=== PATIENT | male | born 1990 | race African-American/Black ===

== ENCOUNTER 2022-05-22 18:11 | Inpatient (IN) | payer OTHER ==
[2022-05-22 20:18] VITALS: BMI 33.5
[2022-05-23] MEDS ORDERED: IBUPROFEN 600 MG TABLET (FP) PO PRN (10:48)
[2022-05-23] MEDS ORDERED: NALOXONE HCL (KLOXXADO) 8 MG SPRAY NS PRN (10:48)
[2022-05-23] MEDS ORDERED: chlordiazePOXIDE HCL 25 MG CAPSULE PO PRN (10:48)
[2022-05-23] MEDS ORDERED: IBUPROFEN 400 MG TABLET (FP) PO PRN (10:48)
[2022-05-23] MEDS ORDERED: BENZOCAINE/MENTHOL (CHLORASEPTIC ) LOZENGE MM PRN (10:48)
[2022-05-23] MEDS ORDERED: NICOTINE POLACRILEX 2 MG GUM BUC PRN (10:48)
[2022-05-23] MEDS ORDERED: POLYETHYLENE GLYCOL (HEALTHYLAX) 3350 17 GM PACKET PO PRN (10:48)
[2022-05-23] MEDS ORDERED: LOPERAMIDE HCL 2 MG CAPSULE PO PRN (10:48)
[2022-05-23] MEDS ORDERED: DICYCLOMINE HCL 10 MG CAPSULE PO PRN (10:48)
[2022-05-23] MEDS ORDERED: ACETAMINOPHEN 325 MG TABLET (FP) PO PRN ×2 (10:48)
[2022-05-23] MEDS ORDERED: MAG HYDROX/AL HYDROX/SIMETH 30 ML UNIT-DOSE CUP PO PRN (10:48)
[2022-05-23] MEDS ORDERED: BISMUTH SUBSALICYLATE 524 MG/30 ML PO PRN (10:48)
[2022-05-23] MEDS ORDERED: MAGNESIUM HYDROX 2400MG/30ML ORAL SUSPENSION 30 ML CUP PO PRN (10:48)
[2022-05-23] MEDS ORDERED: chlordiazePOXIDE HCL 25 MG CAPSULE ONE (11:53)
[2022-05-23] MEDS: chlordiazePOXIDE HCL 25 MG CAPSULE PO SCH ×3 (11:56→22:07)
[2022-05-23] MEDS ORDERED: LOSARTAN 50MG/HCTZ 12.5MG 1 TAB PO SCH (13:00)
[2022-05-23] MEDS: ONDANSETRON *ODT* 4 MG TABLET SL PRN (13:23)
[2022-05-23] MEDS: hydrOXYzine PAMOATE 25 MG CAPSULE (FP) PO PRN (13:23)
[2022-05-23] MEDS: METHOCARBAMOL 500 MG TABLET PO PRN (13:23)
[2022-05-23] MEDS: ALBUTEROL SO4 HFA INHALER IH PRN ×2 (13:23→22:06)
[2022-05-23] MEDS: NICOTINE 10 MG CARTRIDGE (INHALER) IH PRN (13:29)
[2022-05-23] MEDS: LOSARTAN POTASSIUM 50 MG TABLET PO SCH (14:13)
[2022-05-23] MEDS: HYDROCHLOROTHIAZIDE 12.5 MG CAPSULE (FP) PO SCH (14:13)
[2022-05-23] MEDS: MELATONIN 5 MG TABLETS PO SCH (22:05)
[2022-05-23] MEDS: THIAMINE HCL 100 MG TABLET (FP) PO SCH (22:06)
[2022-05-23] MEDS: APIXABAN 5 MG TABLET PO SCH (22:06)
[2022-05-23] MEDS: BUDESONIDE/FORMETEROL FUMARATE 80/4.5 mcg INHALER IH SCH (22:07)
[2022-05-24] MEDS: chlordiazePOXIDE HCL 25 MG CAPSULE PO SCH ×4 (06:07→22:45)
[2022-05-24] MEDS: PRENATAL VITAMINS W/ FOLIC ACID TABLET (FP) PO SCH (10:22)
[2022-05-24] MEDS: HYDROCHLOROTHIAZIDE 12.5 MG CAPSULE (FP) PO SCH (10:22)
[2022-05-24] MEDS: LOSARTAN POTASSIUM 50 MG TABLET PO SCH (10:22)
[2022-05-24] MEDS: APIXABAN 5 MG TABLET PO SCH ×2 (10:22→22:44)
[2022-05-24] MEDS: BUDESONIDE/FORMETEROL FUMARATE 80/4.5 mcg INHALER IH SCH ×2 (10:23→22:43)
[2022-05-24 11:20] LABS: HEMATOCRIT 43.1 % (35.4-49); HEMOGLOBIN 14.3 GM/dL (11.7-16.9); MCH 28.9 pg (25.7-33.7); MCHC 33.3 g/dl (32.0-35.9); MEAN CELL VOLUME 86.9 fl (80-96); MEAN PLT VOLUME 9.2 fl (7.5-11.1); PLATELET COUNT 211 10^3/uL (134-434); RBC 4.96 M/mm3 (4.00-5.60); RDW 14.8 % (11.9-15.9); WHITE BLOOD COUNT 4.3 K/mm3 (4.0-10.0)
[2022-05-24 11:38] LABS: ALBUMIN 3.5 g/dl (3.4-5.0); BLOOD UREA NITROGEN 14.9 mg/dL (7-18); CALCIUM 8.7 mg/dL (8.5-10.1)
[2022-05-24 11:41] LABS: CREATININE 1.4 mg/dL (0.55-1.3)
[2022-05-24 11:43] LABS: BILIRUBIN,TOTAL 0.5 mg/dL (0.2-1); TOT PROT 6.8 g/dl (6.4-8.2)
[2022-05-24] MEDS: NICOTINE 10 MG CARTRIDGE (INHALER) IH PRN (18:59)
[2022-05-24] MEDS ORDERED: chlordiazePOXIDE HCL 25 MG CAPSULE PO SCH (19:15)
[2022-05-24] MEDS: MELATONIN 5 MG TABLETS PO SCH (22:44)
[2022-05-24] MEDS: hydrOXYzine PAMOATE 25 MG CAPSULE (FP) PO PRN (22:45)
[2022-05-24] MEDS: THIAMINE HCL 100 MG TABLET (FP) PO SCH (22:45)
[2022-05-24] MEDS: METHOCARBAMOL 500 MG TABLET PO PRN (22:45)
[2022-05-25] MEDS: chlordiazePOXIDE HCL 25 MG CAPSULE PO SCH ×4 (05:21→22:18)
[2022-05-25] MEDS: HYDROCHLOROTHIAZIDE 12.5 MG CAPSULE (FP) PO SCH (10:34)
[2022-05-25] MEDS: LOSARTAN POTASSIUM 50 MG TABLET PO SCH (10:34)
[2022-05-25] MEDS: APIXABAN 5 MG TABLET PO SCH ×2 (10:34→22:17)
[2022-05-25] MEDS: PRENATAL VITAMINS W/ FOLIC ACID TABLET (FP) PO SCH (10:34)
[2022-05-25] MEDS: BUDESONIDE/FORMETEROL FUMARATE 80/4.5 mcg INHALER IH SCH ×2 (10:36→22:18)
[2022-05-25] MEDS: ONDANSETRON *ODT* 4 MG TABLET SL PRN (10:37)
[2022-05-25] MEDS ORDERED: risperiDONE 1 MG TABLET PO ONE (12:08)
[2022-05-25] MEDS: METHOCARBAMOL 500 MG TABLET PO PRN (18:29)
[2022-05-25] MEDS: NICOTINE 10 MG CARTRIDGE (INHALER) IH PRN (21:50)
[2022-05-25] MEDS: THIAMINE HCL 100 MG TABLET (FP) PO SCH (22:17)
[2022-05-25] MEDS: PRAZOSIN HCL 1 MG CAPSULE PO SCH (22:17)
[2022-05-25] MEDS: MELATONIN 5 MG TABLETS PO SCH (22:17)
[2022-05-25] MEDS: DIVALPROEX SODIUM 500 MG TABLET E.C. PO SCH (22:18)
[2022-05-25] MEDS: traZODone HCL 50 MG TABLET (FP) PO SCH (22:18)
[2022-05-26] MEDS ORDERED: chlordiazePOXIDE HCL 10 MG CAPSULE PO PRN
[2022-05-26] MEDS: chlordiazePOXIDE HCL 10 MG CAPSULE PO SCH ×4 (06:12→23:09)
[2022-05-26] MEDS ORDERED: risperiDONE 1 MG TABLET PO SCH (10:00)
[2022-05-26] MEDS ORDERED: risperiDONE 2 MG TABLET PO SCH (10:00)
[2022-05-26] MEDS: HYDROCHLOROTHIAZIDE 12.5 MG CAPSULE (FP) PO SCH (10:22)
[2022-05-26] MEDS: DIVALPROEX SODIUM 500 MG TABLET E.C. PO SCH ×2 (10:22→23:04)
[2022-05-26] MEDS: LOSARTAN POTASSIUM 50 MG TABLET PO SCH (10:22)
[2022-05-26] MEDS: APIXABAN 5 MG TABLET PO SCH ×2 (10:22→23:03)
[2022-05-26] MEDS: PRENATAL VITAMINS W/ FOLIC ACID TABLET (FP) PO SCH (10:22)
[2022-05-26] MEDS: BUDESONIDE/FORMETEROL FUMARATE 80/4.5 mcg INHALER IH SCH ×2 (10:23→23:09)
[2022-05-26 12:27] LABS: CALCIUM 9.6 mg/dL (8.5-10.1)
[2022-05-26 12:28] LABS: BLOOD UREA NITROGEN 16.5 mg/dL (7-18)
[2022-05-26 12:31] LABS: CREATININE 1.4 mg/dL (0.55-1.3)
[2022-05-26] MEDS: METHOCARBAMOL 500 MG TABLET PO PRN (17:35)
[2022-05-26] MEDS: hydrOXYzine PAMOATE 25 MG CAPSULE (FP) PO PRN (17:36)
[2022-05-26] MEDS: THIAMINE HCL 100 MG TABLET (FP) PO SCH (23:03)
[2022-05-26] MEDS: traZODone HCL 50 MG TABLET (FP) PO SCH (23:04)
[2022-05-26] MEDS: risperiDONE 2 MG TABLET PO SCH (23:04)
[2022-05-26] MEDS: PRAZOSIN HCL 1 MG CAPSULE PO SCH (23:10)
[2022-05-26] MEDS: MELATONIN 5 MG TABLETS PO SCH (23:11)
[2022-05-27] MEDS: chlordiazePOXIDE HCL 10 MG CAPSULE PO SCH ×2 (05:55→18:38)
[2022-05-27] MEDS: ALBUTEROL SO4 HFA INHALER IH PRN ×2 (06:23→22:27)
[2022-05-27] MEDS: LOSARTAN POTASSIUM 50 MG TABLET PO SCH (10:45)
[2022-05-27] MEDS: DIVALPROEX SODIUM 500 MG TABLET E.C. PO SCH ×2 (10:45→22:27)
[2022-05-27] MEDS: PRENATAL VITAMINS W/ FOLIC ACID TABLET (FP) PO SCH (10:45)
[2022-05-27] MEDS: APIXABAN 5 MG TABLET PO SCH ×2 (10:45→22:27)
[2022-05-27] MEDS: HYDROCHLOROTHIAZIDE 12.5 MG CAPSULE (FP) PO SCH (10:45)
[2022-05-27] MEDS: BUDESONIDE/FORMETEROL FUMARATE 80/4.5 mcg INHALER IH SCH ×2 (10:46→22:27)
[2022-05-27] MEDS: risperiDONE 1 MG TABLET PO SCH (10:46)
[2022-05-27] MEDS: OXYMETAZOLINE 0.05% NASAL SOLUTION 15 ML BOTTLE NS PRN (13:12)
[2022-05-27] MEDS: THIAMINE HCL 100 MG TABLET (FP) PO SCH (22:27)
[2022-05-27] MEDS: MELATONIN 5 MG TABLETS PO SCH (22:27)
[2022-05-27] MEDS: risperiDONE 2 MG TABLET PO SCH (22:27)
[2022-05-27] MEDS: PRAZOSIN HCL 1 MG CAPSULE PO SCH (22:27)
[2022-05-27] MEDS: traZODone HCL 50 MG TABLET (FP) PO SCH (22:27)
[2022-05-28] MEDS ORDERED: chlordiazePOXIDE HCL 10 MG CAPSULE PO ONE (05:00)
[2022-05-28] MEDS: OXYMETAZOLINE 0.05% NASAL SOLUTION 15 ML BOTTLE NS PRN (10:00)
[2022-05-28] MEDS: DIVALPROEX SODIUM 500 MG TABLET E.C. PO SCH ×2 (10:00→21:39)
[2022-05-28] MEDS: LOSARTAN POTASSIUM 50 MG TABLET PO SCH (10:00)
[2022-05-28] MEDS: HYDROCHLOROTHIAZIDE 12.5 MG CAPSULE (FP) PO SCH (10:00)
[2022-05-28] MEDS: risperiDONE 1 MG TABLET PO SCH (10:00)
[2022-05-28] MEDS: PRENATAL VITAMINS W/ FOLIC ACID TABLET (FP) PO SCH (10:00)
[2022-05-28] MEDS: BUDESONIDE/FORMETEROL FUMARATE 80/4.5 mcg INHALER IH SCH ×2 (10:00→21:39)
[2022-05-28] MEDS: APIXABAN 5 MG TABLET PO SCH ×2 (10:00→21:39)
[2022-05-28] MEDS: ALBUTEROL SO4 HFA INHALER IH PRN (21:38)
[2022-05-28] MEDS: traZODone HCL 50 MG TABLET (FP) PO SCH (21:39)
[2022-05-28] MEDS: risperiDONE 2 MG TABLET PO SCH (21:39)
[2022-05-28] MEDS: MELATONIN 5 MG TABLETS PO SCH (21:39)
[2022-05-28] MEDS: PRAZOSIN HCL 1 MG CAPSULE PO SCH (21:39)
[2022-05-28] MEDS: THIAMINE HCL 100 MG TABLET (FP) PO SCH (21:39)
[2022-05-29] MEDS: LOSARTAN POTASSIUM 50 MG TABLET PO SCH (10:28)
[2022-05-29] MEDS: PRENATAL VITAMINS W/ FOLIC ACID TABLET (FP) PO SCH (10:28)
[2022-05-29] MEDS: DIVALPROEX SODIUM 500 MG TABLET E.C. PO SCH ×2 (10:28→22:20)
[2022-05-29] MEDS: risperiDONE 1 MG TABLET PO SCH (10:28)
[2022-05-29] MEDS: HYDROCHLOROTHIAZIDE 12.5 MG CAPSULE (FP) PO SCH (10:28)
[2022-05-29] MEDS: APIXABAN 5 MG TABLET PO SCH ×2 (10:28→22:20)
[2022-05-29] MEDS: OXYMETAZOLINE 0.05% NASAL SOLUTION 15 ML BOTTLE NS PRN (10:29)
[2022-05-29] MEDS: BUDESONIDE/FORMETEROL FUMARATE 80/4.5 mcg INHALER IH SCH ×2 (10:29→22:21)
[2022-05-29] MEDS: hydrOXYzine PAMOATE 25 MG CAPSULE (FP) PO PRN (18:18)
[2022-05-29] MEDS: ALBUTEROL SO4 HFA INHALER IH PRN (18:19)
[2022-05-29] MEDS: NICOTINE 10 MG CARTRIDGE (INHALER) IH PRN (18:19)
[2022-05-29] MEDS: MELATONIN 5 MG TABLETS PO SCH (22:20)
[2022-05-29] MEDS: THIAMINE HCL 100 MG TABLET (FP) PO SCH (22:20)
[2022-05-29] MEDS: traZODone HCL 50 MG TABLET (FP) PO SCH (22:20)
[2022-05-29] MEDS: PRAZOSIN HCL 1 MG CAPSULE PO SCH (22:20)
[2022-05-29] MEDS: risperiDONE 2 MG TABLET PO SCH (22:20)
[2022-05-30] MEDS: BUDESONIDE/FORMETEROL FUMARATE 80/4.5 mcg INHALER IH SCH ×2 (10:35→22:47)
[2022-05-30] MEDS: risperiDONE 1 MG TABLET PO SCH (10:35)
[2022-05-30] MEDS: DIVALPROEX SODIUM 500 MG TABLET E.C. PO SCH ×2 (10:35→22:45)
[2022-05-30] MEDS: HYDROCHLOROTHIAZIDE 12.5 MG CAPSULE (FP) PO SCH (10:35)
[2022-05-30] MEDS: PRENATAL VITAMINS W/ FOLIC ACID TABLET (FP) PO SCH (10:35)
[2022-05-30] MEDS: LOSARTAN POTASSIUM 50 MG TABLET PO SCH (10:35)
[2022-05-30] MEDS: OXYMETAZOLINE 0.05% NASAL SOLUTION 15 ML BOTTLE NS PRN (10:35)
[2022-05-30] MEDS: APIXABAN 5 MG TABLET PO SCH ×2 (10:35→22:45)
[2022-05-30 12:50] VITALS: RESP 18
[2022-05-30] MEDS: traZODone HCL 50 MG TABLET (FP) PO SCH (22:44)
[2022-05-30] MEDS: risperiDONE 2 MG TABLET PO SCH (22:45)
[2022-05-30] MEDS: MELATONIN 5 MG TABLETS PO SCH (22:45)
[2022-05-30] MEDS: THIAMINE HCL 100 MG TABLET (FP) PO SCH (22:47)
[2022-05-30] MEDS: PRAZOSIN HCL 1 MG CAPSULE PO SCH (23:16)
[2022-05-31] MEDS: HYDROCHLOROTHIAZIDE 12.5 MG CAPSULE (FP) PO SCH (09:37)
[2022-05-31] MEDS: LOSARTAN POTASSIUM 50 MG TABLET PO SCH (09:37)
[2022-05-31] MEDS: DIVALPROEX SODIUM 500 MG TABLET E.C. PO SCH ×2 (09:37→22:20)
[2022-05-31] MEDS: APIXABAN 5 MG TABLET PO SCH ×2 (09:37→22:19)
[2022-05-31] MEDS: OXYMETAZOLINE 0.05% NASAL SOLUTION 15 ML BOTTLE NS PRN (09:37)
[2022-05-31] MEDS: risperiDONE 1 MG TABLET PO SCH (09:37)
[2022-05-31] MEDS: PRENATAL VITAMINS W/ FOLIC ACID TABLET (FP) PO SCH (09:37)
[2022-05-31] MEDS: BUDESONIDE/FORMETEROL FUMARATE 80/4.5 mcg INHALER IH SCH ×2 (09:37→22:20)
[2022-05-31] MEDS: PRAZOSIN HCL 1 MG CAPSULE PO SCH (22:19)
[2022-05-31] MEDS: MELATONIN 5 MG TABLETS PO SCH (22:20)
[2022-05-31] MEDS: THIAMINE HCL 100 MG TABLET (FP) PO SCH (22:20)
[2022-05-31] MEDS: risperiDONE 2 MG TABLET PO SCH (22:20)
[2022-05-31] MEDS: traZODone HCL 50 MG TABLET (FP) PO SCH (22:20)
[2022-06-01 06:28] VITALS: TEMP 97.3
[2022-06-01] MEDS: risperiDONE 1 MG TABLET PO SCH (09:52)
[2022-06-01] MEDS: DIVALPROEX SODIUM 500 MG TABLET E.C. PO SCH (09:52)
[2022-06-01] MEDS: PRENATAL VITAMINS W/ FOLIC ACID TABLET (FP) PO SCH (09:52)
[2022-06-01] MEDS: APIXABAN 5 MG TABLET PO SCH (09:52)
[2022-06-01] MEDS: HYDROCHLOROTHIAZIDE 12.5 MG CAPSULE (FP) PO SCH (09:52)
[2022-06-01] MEDS: BUDESONIDE/FORMETEROL FUMARATE 80/4.5 mcg INHALER IH SCH (09:52)
[2022-06-01] MEDS: LOSARTAN POTASSIUM 50 MG TABLET PO SCH (09:52)
[2022-06-01] MEDS: ALBUTEROL SO4 HFA INHALER IH PRN (09:53)
[2022-06-01 13:22] VITALS: BP 133/74; PULSE 62
== END 2022-06-01 15:16 | disposition other institution (70) | DRG 897 ==
LOC: YASAS 18:11 → Y3N 05-23 12:18
PROVIDERS: ADMIT Allergy & Immunology; ATTEND Surgery
PROC: HZ2ZZZZ Detoxification Services for Substance Abuse Treatment (ICD-10-PCS; principal; 2022-05-23)
DX: F10.230 Alcohol dependence with withdrawal, uncomplicated (principal); F14.20 Cocaine dependence, uncomplicated; F17.210 Nicotine dependence, cigarettes, uncomplicated; F31.9 Bipolar disorder, unspecified; F20.9 Schizophrenia, unspecified; F43.10 Post-traumatic stress disorder, unspecified; F90.9 Attention-deficit hyperactivity disorder, unspecified type; R73.9 Hyperglycemia, unspecified; R79.89 Other specified abnormal findings of blood chemistry; Z20.822 Contact with and (suspected) exposure to COVID-19; Z86.718 Personal history of other venous thrombosis and embolism; Z79.01 Long term (current) use of anticoagulants; Z28.310 Unvaccinated for COVID-19; Z28.9 Immunization not carried out for unspecified reason; Z86.69 Personal history of other diseases of the nervous system and sense organs
CPT/HCPCS: 36415; 80048; 80053; 80164; 83036; 85027; 86780; 87811; 93005; 93010; C9803-CS; J2794; Q0162; U0003; U0005

== ENCOUNTER 2023-08-18 12:00 | Inpatient (IN) | payer OTHER ==
[2023-08-18 12:38] VITALS: BMI 29.3
[2023-08-18] MEDS ORDERED: ALBUTEROL SO4 HFA INHALER IH PRN (13:46)
[2023-08-18] MEDS ORDERED: chlordiazePOXIDE HCL 25 MG CAPSULE PO PRN (14:00)
[2023-08-18] MEDS ORDERED: ACETAMINOPHEN 325 MG TABLET (FP) PO PRN (14:02)
[2023-08-18] MEDS ORDERED: METHOCARBAMOL 500 MG TABLET PO PRN (14:02)
[2023-08-18] MEDS ORDERED: MAG HYDROX/AL HYDROX/SIMETH 30 ML UNIT-DOSE CUP PO PRN (14:02)
[2023-08-18] MEDS ORDERED: LOPERAMIDE HCL 2 MG CAPSULE PO PRN (14:02)
[2023-08-18] MEDS ORDERED: POLYETHYLENE GLYCOL (HEALTHYLAX) 3350 17 GM PACKET PO PRN (14:02)
[2023-08-18] MEDS ORDERED: BENZONATATE 200 MG CAPSULE PO PRN (14:02)
[2023-08-18] MEDS ORDERED: ONDANSETRON *ODT* 4 MG TABLET SL PRN (14:02)
[2023-08-18] MEDS ORDERED: DICYCLOMINE HCL 10 MG CAPSULE PO PRN (14:02)
[2023-08-18] MEDS ORDERED: MAGNESIUM HYDROX 2400MG/30ML ORAL SUSPENSION 30 ML CUP PO PRN (14:02)
[2023-08-18] MEDS ORDERED: guaiFENesin 600 MG TABLET.ER (FP) PO PRN (14:02)
[2023-08-18] MEDS ORDERED: BENZOCAINE/MENTHOL (CHLORASEPTIC ) LOZENGE MM PRN (14:02)
[2023-08-18] MEDS: APIXABAN 5 MG TABLET PO SCH (22:41)
[2023-08-18] MEDS: MELATONIN 5 MG TABLETS PO SCH (22:41)
[2023-08-18] MEDS: THIAMINE HCL 100 MG TABLET (FP) PO SCH (22:41)
[2023-08-18] MEDS: BUDESONIDE/FORMETEROL FUMARATE 80/4.5 mcg INHALER IH SCH (22:41)
[2023-08-18] MEDS: SACUBITRIL/VALSARTAN 24 MG-26 MG TABLET PO SCH (22:42)
[2023-08-18] MEDS: BACITRACIN 0.9 GM PACKET TP SCH (22:42)
[2023-08-18] MEDS: chlordiazePOXIDE HCL 25 MG CAPSULE PO SCH (22:44)
[2023-08-19] MEDS: BUMETANIDE 1 MG TABLET PO SCH (10:23)
[2023-08-19] MEDS: METOPROLOL TARTRATE 25 MG TABLET (FP) PO SCH (10:23)
[2023-08-19] MEDS: EMPAGLIFLOZIN (JARDIANCE) 10 MG TABLET PO SCH (10:23)
[2023-08-19] MEDS: SPIRONOLACTONE 25 MG TABLET PO SCH (10:24)
[2023-08-19] MEDS: PANTOPRAZOLE 40 MG TABLET PO SCH (10:24)
[2023-08-19] MEDS: PRENATAL VITAMINS W/ FOLIC ACID TABLET (FP) PO SCH (10:24)
[2023-08-19] MEDS: FOLIC ACID 1 MG TABLET (FP) PO SCH (10:26)
[2023-08-19] MEDS ORDERED: ALBUTEROL SO4 2.5/IPRATROPIUM 0.5 INH SOL 3 ML VIAL.NEB. NEB PRN (11:05)
[2023-08-19] MEDS: risperiDONE 1 MG TABLET PO SCH (11:41)
[2023-08-19] MEDS: SUVOREXANT 10 MG TABLET PO PRN (22:27)
[2023-08-20] MEDS: chlordiazePOXIDE HCL 10 MG CAPSULE PO SCH (05:03)
[2023-08-20 11:51] LABS: PROTHROMBIN TIME (PATIENT) 11.6 SEC (9.7-13.0)
[2023-08-20 11:54] LABS: POTASSIUM 4.2 mmol/L (3.5-5.1)
[2023-08-20 11:56] LABS: HEMATOCRIT 42.7 % (35.4-49); HEMOGLOBIN 14.1 GM/dL (11.7-16.9); MCH 28.2 pg (25.7-33.7); MEAN CELL VOLUME 85.7 fl (80-96); MEAN PLT VOLUME 8.9 fl (7.5-11.1); PLATELET COUNT 194 10^3/uL (134-434); RBC 4.98 M/mm3 (4.00-5.60); WHITE BLOOD COUNT 4.4 K/mm3 (4.0-10.0)
[2023-08-20 12:05] LABS: BLOOD UREA NITROGEN 12.2 mg/dL (7-18)
[2023-08-20 12:07] LABS: ALBUMIN 3.2 g/dl (3.4-5.0)
[2023-08-20 12:08] LABS: TOT PROT 6.1 g/dl (6.4-8.2)
[2023-08-20 12:10] LABS: BILIRUBIN,TOTAL 0.6 mg/dL (0.2-1)
[2023-08-21] MEDS: chlordiazePOXIDE HCL 10 MG CAPSULE PO SCH (06:05)
[2023-08-22] MEDS: chlordiazePOXIDE HCL 10 MG CAPSULE PO ONE (06:04)
[2023-08-22 09:46] VITALS: BP 135/74; PULSE 90; RESP 18; TEMP 97.7
== END 2023-08-22 13:45 | disposition left against medical advice (07) | DRG 894 ==
LOC: YASAS 12:00 → Y6N 14:19 → Y5N 08-22 13:07
PROVIDERS: ADMIT Allergy & Immunology; ATTEND Surgery
PROC: HZ2ZZZZ Detoxification Services for Substance Abuse Treatment (ICD-10-PCS; 2023-08-18)
PROC: HZ42ZZZ Group Counseling for Substance Abuse Treatment, Cognitive-Behavioral (ICD-10-PCS; principal; 2023-08-22)
DX: F10.20 Alcohol dependence, uncomplicated (principal); F14.20 Cocaine dependence, uncomplicated; F19.282 Other psychoactive substance dependence with psychoactive substance-induced sleep disorder; F12.20 Cannabis dependence, uncomplicated; F17.210 Nicotine dependence, cigarettes, uncomplicated; F19.24 Other psychoactive substance dependence with psychoactive substance-induced mood disorder; J45.909 Unspecified asthma, uncomplicated; K21.9 Gastro-esophageal reflux disease without esophagitis; I11.0 Hypertensive heart disease with heart failure; I50.9 Heart failure, unspecified; E11.9 Type 2 diabetes mellitus without complications; Z79.84 Long term (current) use of oral hypoglycemic drugs; Z86.718 Personal history of other venous thrombosis and embolism; Z79.01 Long term (current) use of anticoagulants; Z86.59 Personal history of other mental and behavioral disorders
CPT/HCPCS: 36415; 80053; 85027; 85610; 86780; 93005; 93010